=== PATIENT | female | born 1945 ===

== ENCOUNTER 2018-04-18 12:33 | Emergency (ER) | payer OTHER ==
[2018-04-18 12:53] VITALS: BP 156/88; PULSE 80; RESP 18; TEMP 99.2; O2SAT 96
--- NOTE | 2018-04-18 14:19 | ED PDOC ---
HPI: General Adult Time Seen by Provider: 04/18/18 13:00 Chief Complaint (Nursing): GI Problem Chief Complaint (Provider): Rectal Bleeding History Per: Patient, Psychiatric Assistant (pt requests that her daughter tip at bedside translate from french) History/Exam Limitations: no limitations Onset/Duration Of Symptoms: Days (x2) Current Symptoms Are (Timing): Still Present Additional Complaint(s): 72 year old female presents to the ED with her daughter complaining of rectal bleeding for the past 2 days. Daughter reports that she has been seeing blood with bowel movements which was worse yesterday than Wednesday. Today, patient was seen by her PMD who recommended she come to the ER. Daughter states that patient normally has blood in urine samples. Denies fever, abdominal pain, vomiting, pain, or new medications. PMD: Jorge Samuel Past Medical History Reviewed: Historical Data, Nursing Documentation, Vital Signs Vital Signs: Last Vital Signs Temp 99.2 F 04/18/18 12:52 Pulse 80 04/18/18 12:52 Resp 18 04/18/18 12:52 BP 156/88 H 04/18/18 12:52 Pulse Ox 96 04/18/18 12:52 - Medical History PMH: No Chronic Diseases - Surgical History Other surgeries: Hysterectomy - Family History Family History: States: Unknown Family Hx - Allergies Allergies/Adverse Reactions: Allergies Allergy/AdvReac Type Severity Reaction Status Date / Time No Known Allergies Allergy Verified 04/18/18 12:51 Review of Systems ROS Statement: Except As Marked, All Systems Reviewed And Found Negative Constitutional: Negative for: Fever Gastrointestinal: Positive for: Other (Rectal bleeding). Negative for: Vomiting, Abdominal Pain Physical Exam - Reviewed Nursing Documentation Reviewed: Yes Vital Signs Reviewed: Yes - Physical Exam Appears: Positive for: Non-toxic, No Acute Distress Head Exam: Positive for: ATRAUMATIC, NORMOCEPHALIC Skin: Positive for: Normal Color, Warm, Dry Eye Exam: Positive for: Normal appearance Neck: Positive for: Normal, Painless ROM Cardiovascular/Chest: Positive for: Regular Rate, Rhythm Respiratory: Positive for: Normal Breath Sounds. Negative for: Wheezing, Respiratory Distress Gastrointestinal/Abdominal: Positive for: Normal Exam, Soft. Negative for: Tenderness Rectal: Positive for: Normal Exam (brown stool sent to lab), Other (Cold Roll Catcher Mireille Sabado) Extremity: Positive for: Normal ROM Neurologic/Psych: Positive for: Alert, Oriented. Negative for: Motor/Sensory Deficits - Laboratory Results Result Diagrams: 04/18/18 12:30 04/18/18 12:30 - ECG O2 Sat by Pulse Oximetry: 96 (RA) Pulse Ox Interpretation: Normal Medical Decision Making Medical Decision Making: Initial Impression: rectal bleeding Initial Plan: --Type and screen stat --CMP --CBC --Urinalysis 15:58 Labs reviewed and no clinically significant abnormalities found. Time: 1700 Patient will be signed out to Dr. Monroe pending reevaluation. -------- --------- Scribe Attestation: Documented by Ash Recinos acting as a scribe for Bekah Gatica MD. Provider Scribe Attestation: All medical record entries made by the Scribe were at my direction and personally dictated by me. I have reviewed the chart and agree that the record accurately reflects my personal performance of the history, physical exam, medical decision making, and the department course for this patient. I have also personally directed, reviewed, and agree with the discharge instructions and disposition. Disposition - Clinical Impression Clinical Impression: Rectal bleeding - Patient ED Disposition Is Patient to be Admitted: Transfer of Care - Disposition Referrals: Jorge Blake MD [Family Provider] - 04/19/18 Disposition: Transfer of Care Disposition Time: 17:00 Condition: GOOD Additional Instructions: COLE ANALISIS DE CALIN Y EVACUACION ESTAN NORMALES. USTED NO TIENE CALIN EN COLE EVACUACION VISITA DR BLAKE ESTA SEMANA A CHEQAR DE NUEVO Y A HACER TU REFERRAL DE GASTROENTEROLOGO (SPECIALISTA DE [place]) POR MAS EVALUACIONES. Instructions: Bloody Stools, Adult (DC) Print Language: UPPER SORBIAN Patient Signed Over To: Carol Monroe Handoff Comments: pending reevaluation
[2018-04-18 14:28] LABS: BASO % 0.8 % (0.0-2.0); EOS # 0.1 K/uL (0.0-0.7); EOS % 0.8 % (0.0-4.0); HEMOGLOBIN 13.6 g/dL (12.0-16.0); LYMPH # 1.2 K/uL (1.0-4.3); LYMPH % 19.6 % (20.0-40.0); MEAN CELL VOLUME 85.6 fl (81.0-99.0); MEAN CORPUSCULAR HEMOGLOBIN 27.7 pg (27.0-31.0); MEAN CORPUSCULAR HGB CONC 32.4 g/dL (33.0-37.0); MEAN PLATELET VOLUME 8.3 fl (7.2-11.7); MONO # 0.3 K/uL (0.0-0.8); MONO % 5.2 % (0.0-10.0); NEUT # 4.7 K/uL (1.8-7.0); NEUT % 73.6 % (50.0-75.0); NRBC % 0.1 % (0.0-0.0); RBC 4.9 Mil/uL (3.80-5.20); RED CELL DISTRIBUTION WIDTH 15.6 % (11.5-14.5); WHITE BLOOD COUNT 6.3 K/uL (4.8-10.8)
[2018-04-18 14:40] LABS: ALB/GLOB RATIO 1.3 (1.0-2.1); ALBUMIN 4.5 g/dL (3.5-5.0); ALT/SGPT 31 U/L (9-52); AST/SGOT 33 U/L (14-36); BLOOD UREA NITROGEN 19 mg/dl (7-17); CALCIUM 10.1 mg/dL (8.4-10.2); GFR NON-AFRICAN AMERICAN 55
--- NOTE | 2018-04-18 17:15 | ED PDOC ---
- Laboratory Results Result Diagrams: 04/18/18 12:30 04/18/18 12:30 - ECG O2 Sat by Pulse Oximetry: 96 (RA) Disposition Counseled Patient/Family Regarding: Studies Performed, Diagnosis, Need For Followup - Clinical Impression Clinical Impression: Rectal bleeding - POA Present On Arrival: None - Disposition Referrals: Jorge Blake MD [Family Provider] - 04/19/18 Disposition: Routine/Home Disposition Time: 17:22 Condition: GOOD Additional Instructions: COLE ANALISIS DE CALIN Y EVACUACION ESTAN NORMALES. USTED NO TIENE CALIN EN COLE EVACUACION VISITA DR BLAKE ESTA SEMANA A CHEQAR DE NUEVO Y A HACER TU REFERRAL DE GASTROENTEROLOGO (SPECIALISTA DE [place]) POR MAS EVALUACIONES. Instructions: Bloody Stools, Adult (DC) Print Language: ESTONIAN Progress Note - Review of Symptoms Events since last encounter: 5p Rec'd endorsement from Dr Gatica. Pt with reported rectal bleeding. Bloodwork unremarkable. Stool occult pending. 515p Stool occult negative. Reviewed findings with pt and family. Stable for discharge with outpatient followup.
== END 2018-04-18 17:46 | disposition home or self-care (01) ==
LOC: H.ER 12:33
DX: K62.5 Hemorrhage of anus and rectum (principal)
CPT/HCPCS: 80053; 85025; 86850; 86900; 99283; G0328